=== PATIENT | male | born 1950 | race Caucasian/White ===

== ENCOUNTER → 2021-05-02 | Outpatient (CLI) | payer OTHER ==
[~2021-05-02] MED LIST: ALLOPURINOL100 MG PO; AMLODIPINE BESYL5 MG PO; ARTHRITIS PAIN50 GM TP; CIPRO500 MG PO; FLOMAX0.4 MG PO; ISOSORBIDE MON120 MG PO; LIPITOR80 MG PO; METFORMIN HCL1000 MG PO; METHOCARBAMOL500 MG PO; MOBIC7.5 MG PO; NITROGLYCERIN0.4 MG SL; PLAVIX 75 MG TA75 MG PO; PROTONIX 40 MG40 M1 PO; RANOLAZINE ER1000 MG PO; TRADJENTA5 MG PO; VITAMIN B-121000 MC2 SL; VITAMIN D31250 MCG PO; ZETIA10 MG PO; ZOFRAN4 MG PO
== END ==
LOC: EXRD 10:15
DX: M25.562 Pain in left knee (principal)
CPT/HCPCS: 73564

== ENCOUNTER → 2021-06-14 | Day surgery (SDC) | payer OTHER | END | disposition home or self-care (01) | LOC: OR 07:30 | DX: C61 Malignant neoplasm of prostate (principal); N40.1 Benign prostatic hyperplasia with lower urinary tract symptoms; R35.0 Frequency of micturition; R39.11 Hesitancy of micturition; R39.16 Straining to void; I25.10 Atherosclerotic heart disease of native coronary artery without angina pectoris; J44.9 Chronic obstructive pulmonary disease, unspecified; E11.9 Type 2 diabetes mellitus without complications; K21.9 Gastro-esophageal reflux disease without esophagitis; M10.9 Gout, unspecified; E78.5 Hyperlipidemia, unspecified; I10 Essential (primary) hypertension; Z87.891 Personal history of nicotine dependence; Z79.02 Long term (current) use of antithrombotics/antiplatelets; Z79.84 Long term (current) use of oral hypoglycemic drugs; Z79.899 Other long term (current) drug therapy | CPT/HCPCS: 82962; J7040; J7120 ==

== ENCOUNTER → 2021-07-17 | Outpatient (CLI) | payer OTHER | LOC: NM 07:16 | DX: C61 Malignant neoplasm of prostate (principal) | CPT/HCPCS: 78306; A9503 ==

== ENCOUNTER → 2021-12-04 | Outpatient (CLI) | payer OTHER | LOC: EXRD 10:20 | DX: U07.1 COVID-19 (principal) | CPT/HCPCS: 71046 ==

== ENCOUNTER → 2021-12-05 | Outpatient (CLI) | payer OTHER ==
[~2021-12-05] VITALS: Ht 170.2 cm; Wt 88.5 kg
== END ==
LOC: EROP 13:31
DX: U07.1 COVID-19 (principal); Z23 Encounter for immunization; E11.9 Type 2 diabetes mellitus without complications; I25.10 Atherosclerotic heart disease of native coronary artery without angina pectoris; I10 Essential (primary) hypertension; J98.4 Other disorders of lung
CPT/HCPCS: M0247; Q0247

== ENCOUNTER → 2022-04-08 | Outpatient (CLI) | payer OTHER | LOC: EXRD 10:32 | DX: M25.511 Pain in right shoulder (principal) | CPT/HCPCS: 73030 ==

== ENCOUNTER → 2022-04-18 | Outpatient (CLI) | payer OTHER | LOC: EXRD 13:58 | DX: M79.662 Pain in left lower leg (principal); I73.9 Peripheral vascular disease, unspecified | CPT/HCPCS: 93922; 93925 ==